=== PATIENT | male | born 1995 | race Caucasian/White ===

== ENCOUNTER 2024-02-14 12:55 | Emergency (ER) | payer MEDICARE, MEDICAID ==
[~2024-02-14] VITALS: Ht 185.4 cm; Wt 89.1 kg
[2024-02-14 14:27] VITALS: BP 134/78; PULSE 74; RESP 16; TEMP 98; O2SAT 97
== END 2024-02-14 14:34 | disposition home or self-care (01) ==
LOC: ER 12:56
DX: M94.0 Chondrocostal junction syndrome [Tietze] (principal)
CPT/HCPCS: 71045; 93005; 99283